=== PATIENT | female | born 1960 | race Caucasian/White ===

== ENCOUNTER 2016-06-19 11:07 | Emergency (ER) | payer MEDICARE ==
--- NOTE | 2016-06-19 11:09 | ED.REPORT ---
HPI-Syncope Date of Service June 19, 2016 ED Provider: Vincent England DO 56 year old female with a history of high cholesterol presents to the ER via EMS due to a syncopal episode just prior to arrival. She states that her was taking her home after she had an eye lift procedure when she became nauseated and lost consciousness. Patient denies any recent illness, headache, and numbness/weakness. She takes ASA daily. Nursing Notes Stated Complaint: SYNCOPE Nursing Notes Reviewed: Yes Allergies: Coded Allergies: Penicillins (Verified Allergy, Intermediate, RASH, 06/19/16) atorvastatin (Verified Adverse Reaction, Intermediate, MAKES HER EYELIDS SPASM, 06/19/16) Scheduled Aspirin Chew (Aspirin Chew) 81 Mg Chew 81 MG PO DAILY Esomeprazole Magnesium (Nexium 24Hr) 20 Mg Tablet.dr 20 MG PO DAILY Simvastatin (Zocor) 20 Mg Tablet 20 MG PO HS General Time Seen by Provider: 11:08 Chief Complaint Lost consciousness Hx Obtained From: Patient Arrived By: Ambulance Onset Occurred: Just prior to arrival Associated with: Denies: Headache, Numbness Additional Notes: Nausea Pertinent Negative: Pt denies other symptoms Similar Sx Previous: No Past Medical History Past Medical History High cholesterol Past Surgical History Cosmetic eyelid surgery Reports: Tubal ligation Smoking History Never Smoker Social History Alcohol Use: Denies alcohol use Drug Use: Denies drug use Other Social History: Review of Systems GI: Reports: Nausea, Denies: Vomiting Neurologic: Reports: Syncope, Denies: Change LOC, Focal weakness, Headache, Numbness, Problem walking, Slurred speech, Weakness Complete sys rev & neg: except as marked. Physical Exam Initial Vital Signs Vital Signs (First) Date Time Temp Pulse Resp B/P Pulse Ox O2 Delivery O2 Flow Rate FiO2 06/19/16 11:10 65 12 128/57 98 Room Air Initial VS: Reviewed Neck: Supple, Non-tender, Full range of motion Skin: Warm, Dry, No cyanosis General/Constitutional: Awake, Alert, Well developed, Well nourished Respiratory / Chest: Breath sounds NL, Breath sounds = bilat, No respiratory distress, No rales, No rhonchi, No wheezing Cardiovascular: Heart rate NL, Regular rhythm, Heart sounds NL, No murmurs, Cap refill not delayed, Peripheral circulation NL Lower Extremity / Pelvis / MS: Inspection NL, No swelling, Non-tender, No erythema, No deformity, Neurologic intact, Vascular intact, No edema Neurologic: Oriented X3, Speech NL, No motor deficits, No sensory deficits, CN II - XII intact, Cerebellar NL Head / Eyes: Normocephalic, PERRL Sutures across bilateral eyelids. Interpretation & Diagnostics Lab Results Interpretation Result Diagram: 06/19/16 1230 06/19/16 1230 Test 06/19/16 12:30 White Blood Count 8.0th/mm3 (3.8-10.1) Red Blood Count 4.57mil/mm3 (3.90-5.20) Hemoglobin 13.7g/dL (12.0-15.6) Hematocrit 40.7% (35.0-46.0) Mean Corpuscular Volume 89.1fL (81-100) Mean Corpuscular Hemoglobin 30.0pg (27.0-35.0) Mean Corpuscular Hemoglobin Concent 33.7% (32.0-37.0) Red Cell Distribution Width 13.0% (12.3-15.4) Platelet Count 251bil/L (150-400) Neutrophils (%) (Auto) 80.0% (40-74) Lymphocytes (%) (Auto) 13.0% (14-46) Monocytes (%) (Auto) 5.9% (4-12) Eosinophils (%) (Auto) 0.5% (0-5) Basophils (%) (Auto) 0.4% (0-3) D-Dimer 1.60mg/L FEU (<0.50) Sodium Level 140mEq/L (134-144) Potassium Level 4.8mEq/L (3.5-5.2) Chloride Level 105mEq/L (97-108) Carbon Dioxide Level 20mmol/L (18-29) Blood Urea Nitrogen 13mg/dL (6-24) Creatinine 0.89mg/dL (0.57-1.00) Estimat Glomerular Filtration Rate 94mL/min (>59) Glucose Level 142mg/dL (60-99) Calcium Level 8.5mg/dL (8.5-10.1) Magnesium Level 1.9mg/dL (1.6-2.6) Total Bilirubin 0.4mg/dL (0.0-1.2) Aspartate Amino Transf (AST/SGOT) 22U/L (0-50) Alanine Aminotransferase (ALT/SGPT) 21U/L (0-32) Alkaline Phosphatase 69U/L (25-150) Troponin T < 0.010ug/L (0.0-0.011) Total Protein 6.7g/dL (6.4-8.4) Albumin 4.0g/dL (3.4-5.0) Hold Walton Top Tube Received (Received) ECG Interpretation Time: 12:02 Interpreted by: ED physician Normal ECG Interpretation: Normal rate (69), Normal sinus rhythm, No acute ischemic changes, Normal QRS, Normal axis, Normal intervals, No change from prior ECGs, Adequate tracing X-Ray Chest Interpretation Chest Xray Interpretation: IMPRESSION: Minimal left basal atelectasis. Otherwise, negative chest. No pneumonia. Dictated by: Anthony Smith M.D. on 06/19/2016 at 11:10 Approved by: Anthony Smith M.D. on 06/19/2016 at 11:10 View: Portable, 1 view Interpretation / Wet Read by: Interpret - Radiologist Re-Eval/Medical Decision Med Decision/Clinical Course No obvious life-threatening cause of syncope identified. Stable for discharge. Return precautions given. Source of Hx: Old records Re-Evaluation/Progress : Time of Eval: 13:13 Re-Evaluation/Progress Note: Patient is currently asymptomatic. Updated her on the plan of care. Counseled Regarding: Diagnosis, Lab results Discharge & Departure Impression: Primary Impression: Syncope Disposition: Home Discharge Condition All VS Reviewed: Yes Condition: Stable Additional Instructions: Overall your workup is reassuring. Use Zofran as needed for vomiting. Follow- up with your primary care doctor in the next few days for repeat evaluation. Return to the ER if you develop recurrent episodes of syncope, persistent vomiting, or other concerns. Referrals: Fide Leavitt MD (PCP) Anthony Vasques MD (Family) Anderson Attestation Portions of this note were transcribed by Zita Medellin. I, Dr. England, personally performed the history, physical exam and medical decision-making; I reviewed and confirmed the accuracy of the information in the transcribed note. Signed by: Anderson Carter, 06/19/2016 and 15:08 copies to: Fide Leavitt MD; Anthony Vasques MD, Timothy S DO June 19, 2016 11:09 ZITA MEDELLIN June 19, 2016 11:29
[2016-06-19 11:10] VITALS: BP 128/57; PULSE 65; RESP 12; O2SAT 98
[2016-06-19] MEDS ORDERED: SIMV20TA PO (11:18)
[2016-06-19] MEDS ORDERED: ASPI81TA3 PO (11:19)
[2016-06-19] MEDS ORDERED: ESOM20TA PO (11:19)
[2016-06-19] MEDS ORDERED: 0.9% Sodium Chloride 1,000 ML IV ONE (11:31)
[2016-06-19] MEDS ORDERED: Ondansetron 2 mg/mL 2 mL Inj IVPUSH ONE (11:35)
--- NOTE | 2016-06-19 12:12 | DRSVH ---
PROCEDURE: X-RAY CHEST ONE VIEW, PORTABLE ([id number]) INDICATIONS: syncope TECHNIQUE: One view of the chest was acquired. COMPARISON: None. FINDINGS: Surgical changes and devices: None. Lungs and pleura: No pleural effusions or pneumothorax. Lungs are clear. There may be minimal atel ectasis at the left base. Mediastinum: Mediastinal contours appear normal. Heart size is normal. Bones and chest wall: No suspicious bony lesions. Mild dextroconvex curvature of the thoracic spine is present. Overlying soft tissues appear unremarkable. IMPRESSION: Minimal left basal atelectasis. Otherwise, negative chest. No pneumonia. Dictated by: Anthony Smith M.D. on 06/19/2016 at 11:10 Approved by: Anthony Smith M.D. on 06/19/2016 at 11:10
[2016-06-19 13:02] LABS: BASOPHILS % (AUTO) 0.4 % (0-3); EOSINOPHILS % (AUTO) 0.5 % (0-5); MONOCYTES % (AUTO) 5.9 % (4-12); Mean Corpuscular Volume 89.1 fL (81-100); Platelet Count 251 bil/L (150-400)
[2016-06-19 13:26] LABS: TROPONIN T < 0.010 ug/L (0.0-0.011)
[2016-06-19 13:30] LABS: Magnesium 1.9 mg/dL (1.6-2.6)
[2016-06-19 14:05] VITALS: BP 149/78; PULSE 76; RESP 12; O2SAT 97
--- NOTE | 2016-06-19 15:37 | DRSVH ---
PROCEDURE: CT ANGIO CHEST PULMONARY EMBOLISM ([id number]) INDICATIONS: synocpe, elevated ddimer TECHNIQUE: After the administration of intravenous contrast, 2 mm thick sections acquired from the pulmonary api raad to the posterior costophrenic angles. 3-dimensional maximum intensity projection (MIP) coronal a nd sagittal reformats were then acquired through the thorax. For radiation dose reduction, the follo wing was used: automated exposure control, adjustment of mA and/or kV according to patient size. COMPARISON: [facility], CR, XR CHEST 1VW (PORTABLE), 06/19/2016, 11:41. FINDINGS: Image quality: Excellent. Pulmonary arteries: Pulmonary arteries are normal in size, and demonstrate no intraluminal filling d efects to suggest central pulmonary embolism. Lungs and pleura: Lungs show subsegmental atelectasis at the lung bases.. No pleural effusions or p neumothorax. Central and peripheral airways are patent. Mediastinum: Heart size is normal, without pericardial effusion. No mediastinal or hilar adenopathy . Thoracic aorta is normal in caliber and enhancement. Esophagus is normal in caliber, without hiat al hernia. Bones and chest wall: No suspicious bony lesions. Ribs and thoracic spine appear intact throughout. Thyroid gland is within normal limits. No axillary or supraclavicular adenopathy. Abdomen: Visualized upper abdominal solid organs appear normal in the early arterial phase of enhanc ement. IMPRESSION: There is no evidence for pulmonary embolus. Lungs other than subsegmental atelectasis are considered clear. Dictated by: Alexander Pierson M.D. on 06/19/2016 at 15:28 Approved by: Alexander Pierson M.D. on 06/19/2016 at 15:35
[2016-06-19] MEDS ORDERED: ONDA4TAB9 PO (16:22)
== END 2016-06-19 16:31 | disposition home or self-care (01) ==
LOC: SED 12:03
DX: R55 Syncope and collapse (principal); Z79.82 Long term (current) use of aspirin; Z88.0 Allergy status to penicillin; Z88.8 Allergy status to other drugs, medicaments and biological substances; Z98.890 Other specified postprocedural states
CPT/HCPCS: 36415; 71010; 71275; 80053; 83735; 84484; 85025; 85378; 93005; 96361; 96374; 99285; J2405; J7030; Q9967